=== PATIENT | male | born 1950 | race Caucasian/White ===

== ENCOUNTER 2017-08-26 07:42 | Emergency (ER) | payer OTHER, MEDICARE ==
[~2017-08-26] VITALS: Ht 180.3 cm; Wt 102.0 kg
[2017-08-26] MEDS ORDERED: ONDANSETRON 2MG/ML, 2ML IVPush ONE (08:30)
[2017-08-26] MEDS ORDERED: MORPHINE SULFATE 4 MG/ML, 1ML IVPush PRN (08:30)
[2017-08-26] MEDS ORDERED: SODIUM CHLORIDE FLUSH 10ML SYR IVF ONE (08:30)
[2017-08-26] MEDS ORDERED: morphine SULFATE 10 MG/ML, 1ML ONE (08:32)
[2017-08-26] MEDS ORDERED: ONDANSETRON 2MG/ML, 2ML ONE (08:32)
[2017-08-26 09:42] LABS: ASPARTATE AMINO TRANSFERASE 16 U/L (15-37); BLOOD UREA NITROGEN 27 mg/dL (7-18)
[2017-08-26 10:19] LABS: HEMATOCRIT 46.8 % (39.2-51.8); HEMOGLOBIN 15.9 g/dL (13.7-18.0); WHITE BLOOD COUNT 13.4 x10^3/uL (3.4-10)
[2017-08-26 10:25] VITALS: BP 119/62
== END 2017-08-26 10:39 | disposition home or self-care (01) ==
LOC: ED 10:30
DX: K80.70 Calculus of gallbladder and bile duct without cholecystitis without obstruction (principal); K21.9 Gastro-esophageal reflux disease without esophagitis
CPT/HCPCS: 36415; 74020; 76700; 80053; 81003; 83690; 85025; 85610; 96374; 96375; 99285; J2405